=== PATIENT | female | born 2000 | race Two or more races ===

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

== ENCOUNTER 2021-10-13 17:03 | Emergency (ER) | payer MEDICAID ==
[~2021-10-13] VITALS: Ht 160 cm; Wt 77.3 kg
[~2021-10-13 17:03] MED LIST: ACET-2247 PO; CEPH500C3 PO; SULF1TAB41 PO
[2021-10-13] MEDS ORDERED: ERYTHROMYCIN 0.5% 3.5 GM TUBE OPHTHALMIC OINTMENT OD ONE (17:30)
[2021-10-13] MEDS ORDERED: PROPARACAINE HCL 0.5% 15 ML OPHTHALMIC SOLUTION OS ONE (18:45)
[2021-10-13] MEDS ORDERED: FLUORESCEIN SODIUM 1 MG STRIP OS ONE (18:45)
[2021-10-13] MEDS ORDERED: ERYTHROMYCIN 0.5% 3.5 GM TUBE OPHTHALMIC OINTMENT OS ONE (20:30)
[2021-10-13] MEDS ORDERED: ERYT3.5O8 OS (20:41)
[2021-10-13 21:08] VITALS: BP 110/66
== END 2021-10-13 21:15 | disposition home or self-care (01) ==
LOC: EMS 17:05
DX: S00.212A Abrasion of left eyelid and periocular area, initial encounter (principal); X58.XXXA Exposure to other specified factors, initial encounter; Y93.89 Activity, other specified; Y92.89 Other specified places as the place of occurrence of the external cause; Y99.8 Other external cause status
CPT/HCPCS: 99284; Z7502; Z7610

== ENCOUNTER 2023-03-23 13:16 | Emergency (ER) | payer SELFPAY ==
[~2023-03-23] VITALS: Ht 160 cm; Wt 72.7 kg
[~2023-03-23 13:16] MED LIST changes: -ACET-2247 PO; -CEPH500C3 PO; +ERYT3.5O8 OS; -SULF1TAB41 PO
[2023-03-23 13:24] VITALS: TEMP 98
[2023-03-23] MEDS ORDERED: SILVER SULFADIAZINE 1% 25 GM CREAM TP ONE (15:15)
[2023-03-23 15:30] VITALS: BP 124/78; PULSE 78; RESP 17
== END 2023-03-23 15:58 | disposition home or self-care (01) ==
LOC: EMS 13:16
DX: T22.212A Burn of second degree of left forearm, initial encounter (principal); X08.8XXA Exposure to other specified smoke, fire and flames, initial encounter; Y93.89 Activity, other specified; Y92.89 Other specified places as the place of occurrence of the external cause; Y99.8 Other external cause status
CPT/HCPCS: 99282; Z7502; Z7610

== ENCOUNTER 2024-04-11 23:24 | Emergency (ER) | payer SELFPAY ==
[~2024-04-11] VITALS: Ht 162.6 cm; Wt 89.0 kg
[2024-04-11 23:27] VITALS: BP 139/95; PULSE 80; RESP 20; TEMP 97.9
[2024-04-12] MEDS: IBUPROFEN 600 MG TABLET PO ONE (00:23)
[2024-04-12] MEDS: OxyCODONE HCL/ACETAMINOPHEN 5-325 MG TABLET PO ONE (00:23)
[2024-04-12] MEDS: PENICILLIN V POTASSIUM 500 MG TABLET PO ONE (00:23)
[2024-04-12] MEDS ORDERED: IBUP-1492 PO (01:08)
[2024-04-12] MEDS ORDERED: PENI500T2 PO (01:08)
== END 2024-04-12 01:30 | disposition home or self-care (01) ==
LOC: EMS 23:24
DX: K02.9 Dental caries, unspecified (principal); F17.210 Nicotine dependence, cigarettes, uncomplicated; F12.90 Cannabis use, unspecified, uncomplicated
CPT/HCPCS: 99284; Z7502; Z7610

== ENCOUNTER 2024-07-22 07:43 | Emergency (ER) | payer MEDICAID ==
[~2024-07-22] VITALS: Ht 162.6 cm; Wt 68.2 kg
[~2024-07-22 07:43] MED LIST changes: -ERYT3.5O8 OS; +IBUP-1492 PO; +PENI500T2 PO
[2024-07-22 07:58] VITALS: BP 130/81; PULSE 96; RESP 18; TEMP 98.2; O2SAT 99
[2024-07-22] MEDS: ACETAMINOPHEN 500 MG TABLET PO ONE (09:00)
== END 2024-07-22 09:09 | disposition home or self-care (01) ==
LOC: EMS 07:43
DX: S00.11XA Contusion of right eyelid and periocular area, initial encounter (principal); H11.31 Conjunctival hemorrhage, right eye; F12.90 Cannabis use, unspecified, uncomplicated; F17.210 Nicotine dependence, cigarettes, uncomplicated; Y04.0XXA Assault by unarmed brawl or fight, initial encounter; Y93.89 Activity, other specified; Y92.89 Other specified places as the place of occurrence of the external cause; Y99.8 Other external cause status
CPT/HCPCS: 99282; Z7502; Z7610

== ENCOUNTER 2025-07-07 05:49 | Emergency (ER) | payer SELFPAY ==
[~2025-07-07] VITALS: Ht 165.1 cm; Wt 90.9 kg
[2025-07-07 05:51] VITALS: BP 126/82; PULSE 107; RESP 18; TEMP 98.4; O2SAT 98
[2025-07-07 06:36] LABS: PLATELET COUNT (AUTO) 252 K/uL (150-450); RED BLOOD CELL COUNT(AUTO) 4.79 MIL/uL (4.00-5.20); RED CELL DISTRIBUTION WIDTH 12.9 % (11.5-14.5); WHITE BLOOD COUNT (AUTO) 7.9 K/uL (4.5-11.0)
[2025-07-07 06:48] LABS: CALCIUM, TOTAL 8.7 mg/dL (8.8-10.5); CREATININE 0.81 mg/dL (0.60-1.30); GLOMERULAR FILTR. RATE CALC > 60 mL/min (>60); GLUCOSE,RANDOM 117 mg/dL (70-110); SODIUM SERUM 138 mmol/L (136-145); UREA NITROGEN, BLOOD 13 mg/dL (7-18)
[2025-07-07 06:52] LABS: ASPARTATE AMINOTRANSFERASE 27.0 U/L (15-37); TOTAL PROTEIN, SERUM 8.1 g/dL (6.4-8.2)
[2025-07-07] MEDS ORDERED: ONDA-104 PO (07:19)
[2025-07-07] MEDS ORDERED: ACET-3385 PO (07:19)
[2025-07-07] MEDS ORDERED: AMOX-457 PO (07:19)
[2025-07-07] MEDS: AMOX TR/POT CLAV 875 MG/125 MG TABLET PO ONE (08:03)
[2025-07-07] MEDS: ONDANSETRON 4 MG TABLET PO ONE (08:04)
[2025-07-07] MEDS: ACETAMINOPHEN 500 MG TABLET PO ONE (08:04)
== END 2025-07-07 08:04 | disposition home or self-care (01) ==
LOC: EMS 05:49
DX: K02.9 Dental caries, unspecified (principal); K08.89 Other specified disorders of teeth and supporting structures; R11.2 Nausea with vomiting, unspecified; R19.7 Diarrhea, unspecified; F12.90 Cannabis use, unspecified, uncomplicated; F17.210 Nicotine dependence, cigarettes, uncomplicated; Z79.899 Other long term (current) drug therapy
CPT/HCPCS: 99284; 80048; 80076; 83690; 84703; 85025; 36415; Q0162